=== PATIENT | female | born 1965 | race Two or more races ===

== ENCOUNTER → 2016-09-03 | Outpatient (CLI) | payer OTHER ==
--- NOTE | 2016-09-03 14:16 | DI ---
History: Left ankle fracture evaluation. Prior study done 08/18/16 available. Seizure: Three-view examination. Bone spur inferior os calcis. Midfoot and hindfoot otherwise unremarkable. Impression: No fracture seen on today's examination. If pain persists, consider MRI study
== END ==
LOC: ORTHO 13:21
PROVIDERS: ATTEND Orthopaedic Surgery
DX: S82.892D Other fracture of left lower leg, subsequent encounter for closed fracture with routine healing (principal)
CPT/HCPCS: 73610